=== PATIENT | male | born 1960 | race Hispanic/Latino ===

== ENCOUNTER 2020-06-19 15:08 | Outpatient (AMBR) | payer MEDICAID, SELFPAY ==
--- NOTE | 2020-06-04 15:07 | PT.OIERPT ---
PT OP Initial Eval Patient Information Visit Reasons: Cerebrovascular accident Medical Diagnosis: acute CVA Treatment Dx #1: CVA with R sided hemiparesis Start of Care: 06/04/20 Date of Onset: 05/28/20 Initial Assessment Subjective Pt is 60 yr old greek speaking male here with his sister s/p CVA about 1 week ago. Pt was admitted to [facility] and then discharged to live with his brother and sister in law. Pt has difficulty walking with FWW and speaking is slurred. He is ambulating with 4WW. PLOF: community mobility without assistive device. PMH: DM, HTN, CVA with R hemiplegia Imaging: in EMR Pt goal: to walk better Objective R Babinski: positive R quads: 3-/5 R HS: 3-/5 R LE tone + R ankle DF PROM: to neutral due to tone and tightness R shoulder PROM: FF: 40 Abd: 60 deg ERot: 20 deg R expanded function dental assistant: unable to expanded function dental assistant fully with pressure Transfers: CGA/Maranda from stand<>sit Tinetti: 01/28 Assessment Pt presentation consistent with CVA and R hemiplegia and increased extensor tone of R LE with mild spasticity and decreased R ankle DF. Pt ambulates with FWW and hemiplegic gait with drop foot on R. For this reason, pt would benefit from an AFO to bring ankle into neutral. R shoulder is limited by tone and myofascial tension. He is a high fall risk on Tinetti balance test and requires assist for safety. Pt requires skilled therapy to improve gait and transfers and has fair rehab potential. Short Term and Mcfp Goals 1. Independent with HEP 2. Pt will transfer from supine to sit using logrolling technique with supervision 3. Improved Tinetti score to at least 13/28 4. Ambulate without catching R toe during swing phase for 30' and FWW Treatment Plan 1. Manual therapy 2. Therex 3. Modalities as indicated, moist heat, ice, estim 4. Therapeutic activities 5. Gait training Frequency and Duration 2x a week for 8 weeks Certification Dates: 06/04/20 to 08/31/20 Office Procedures PT Procedures PT Date of Service: 06/04/20 OP PT Eval Mod Complex 30 minutes: Yes CVA/TIA Most Recent Cardiac Tests: Chest X-Ray 05/28/20
--- NOTE | 2020-06-05 19:40 | PT.ODAYNRPT ---
PT Outpatient Daily Note Date of Service: 06/05/20 OP Daily Note Visit Reasons: Cerebrovascular accident Outpatient Physical Therapy Treatment Date: 06/05/20 Subjective: Same as time of evaluation Objective: See F/S for therex Assessment: Pt is able to ambulate with min/modAx1 and has difficulty lifting R foot with gait. Plan: Continue per POC Length of Time (minutes) of Treatment: 30 Minutes Office Procedures PT Procedures PT Date of Service: 06/05/20 Therapeutic Exercise 30 minutes: Yes PT Procedures PT Date of Service: 06/04/20 OP PT Eval Mod Complex 30 minutes: Yes CVA/TIA Most Recent Cardiac Tests: Chest X-Ray 05/28/20
--- NOTE | 2020-06-11 17:48 | PT.ODAYNRPT ---
PT Outpatient Daily Note Date of Service: 06/11/20 OP Daily Note Visit Reasons: Cerebrovascular accident Outpatient Physical Therapy Treatment Date: 06/11/20 Subjective: Pt c/o pain and points to L hamstring proximally Objective: See F/S for therex Assessment: Pt is able to ambulate with min/modAx1 and has difficulty lifting R foot with gait. L LE pain limited strength on bike and with bridges today. Plan: Continue per POC Length of Time (minutes) of Treatment: 30 Minutes Office Procedures PT Procedures PT Date of Service: 06/05/20 MCL Initial 30 minutes: Yes PT Procedures PT Date of Service: 06/04/20 OP PT Eval Mod Complex 30 minutes: Yes PT Procedures PT Date of Service: 06/11/20 MCL Initial 30 minutes: Yes CVA/TIA Most Recent Cardiac Tests: Chest X-Ray 05/28/20
--- NOTE | 2020-06-13 19:02 | PT.ODAYNRPT ---
PT Outpatient Daily Note Date of Service: 06/13/20 OP Daily Note Visit Reasons: Cerebrovascular accident Outpatient Physical Therapy Treatment Date: 06/13/20 Subjective: No complaints today. Objective: See F/S for therex Assessment: Pt is able to ambulate with minAx1 and normally has difficulty lifting R foot with gait but he didn't catch the foot today and no LOB with turning around in parallel bars with CGA assist and gait belt for safety. Plan: Continue per POC Length of Time (minutes) of Treatment: 30 Minutes Office Procedures PT Procedures PT Date of Service: 06/05/20 MCL Initial 30 minutes: Yes PT Procedures PT Date of Service: 06/13/20 MCL Initial 30 minutes: Yes PT Procedures PT Date of Service: 06/04/20 OP PT Eval Mod Complex 30 minutes: Yes PT Procedures PT Date of Service: 06/11/20 MCL Initial 30 minutes: Yes CVA/TIA Most Recent Cardiac Tests: Chest X-Ray 05/28/20
--- NOTE | 2020-06-19 19:03 | PT.ODAYNRPT ---
PT Outpatient Daily Note Date of Service: 06/19/20 OP Daily Note Visit Reasons: Cerebrovascular accident Outpatient Physical Therapy Treatment Date: 06/19/20 Subjective: Pt says it's difficult to roll onto his side laying down. Objective: See F/S for therex Assessment: Pt is able to ambulate with supervision and FWW which is an improvement in less assist. He has difficulty lifting R foot with gait and tends to not clear the floor during swing phase. Difficulty lifting R LE with rolling in supine. Plan: Continue per POC Length of Time (minutes) of Treatment: 30 Minutes Office Procedures PT Procedures PT Date of Service: 06/05/20 MCL Initial 30 minutes: Yes PT Procedures PT Date of Service: 06/13/20 MCL Initial 30 minutes: Yes PT Procedures PT Date of Service: 06/19/20 MCL Initial 30 minutes: Yes PT Procedures PT Date of Service: 06/04/20 OP PT Eval Mod Complex 30 minutes: Yes PT Procedures PT Date of Service: 06/11/20 MCL Initial 30 minutes: Yes CVA/TIA Most Recent Cardiac Tests: Chest X-Ray 05/28/20
== END 2020-06-30 23:59 | disposition home or self-care (01) ==
PROVIDERS: PCP Internal Medicine; Referring Provider Internal Medicine; Visit Provider Internal Medicine
DX: R26.2 Difficulty in walking, not elsewhere classified (principal); R47.81 Slurred speech; E11.9 Type 2 diabetes mellitus without complications; I10 Essential (primary) hypertension
CPT/HCPCS: 97162

== ENCOUNTER 2020-07-11 13:05 | Outpatient (AMBR) | payer MEDICAID, SELFPAY ==
--- NOTE | 2020-07-01 16:47 | PTNOTE_ITS ---
PT Outpatient Daily Note Date of Service: 07/01/20 OP Daily Note Visit Reasons: Cerebrovascular accident Outpatient Physical Therapy Treatment Date: 07/01/20 Subjective: Same as last time, poor hostorian Objective: See F/S for therex Assessment: Pt ambulates with FWW and slightly discontinuous steps. Without FWW he requires Maranda for balance on R side because he has difficulty clearing R foot during swing phase. Plan: Improve balance with gait Length of Time (minutes) of Treatment: 30 Minutes Office Procedures PT Procedures PT Date of Service: 07/01/20 [facility] Initial 30 minutes: Yes CVA/TIA Most Recent Cardiac Tests: Chest X-Ray 05/28/20
--- NOTE | 2020-07-04 18:54 | PT.ODAYNRPT ---
PT Outpatient Daily Note Date of Service: 07/04/20 OP Daily Note Visit Reasons: Cerebrovascular accident Outpatient Physical Therapy Treatment Date: 07/04/20 Subjective: Same as last time, poor hostorian Objective: See F/S for therex Assessment: Pt ambulates with FWW and slightly discontinuous steps. Without FWW he requires Maranda for balance on R side because he has difficulty clearing R foot during swing phase. Plan: Improve balance with gait Length of Time (minutes) of Treatment: 30 Minutes Office Procedures PT Procedures PT Date of Service: 07/01/20 MCL Initial 30 minutes: Yes PT Procedures PT Date of Service: 07/04/20 MCL Initial 30 minutes: Yes CVA/TIA Most Recent Cardiac Tests: Chest X-Ray 05/28/20
--- NOTE | 2020-07-11 13:38 | PT.ODAYNRPT ---
PT Outpatient Daily Note Date of Service: 07/11/20 OP Daily Note Visit Reasons: Cerebrovascular accident Outpatient Physical Therapy Treatment Date: 07/11/20 Subjective: Pt is walking without walker or assistive device and dtr says he decided one day to do that. Pt feels his balance has improved. Objective: See F/S for therex Assessment: Pt ambulates without FWW and slightly discontinuous steps step through pattern. He didn't have LOB today or catch his foot during the session but he has difficulty lifting the R LE over cones. Plan: Improve balance with gait Length of Time (minutes) of Treatment: 30 Minutes Office Procedures PT Procedures PT Date of Service: 07/01/20 MCL Initial 30 minutes: Yes PT Procedures PT Date of Service: 07/04/20 MCL Initial 30 minutes: Yes PT Procedures PT Date of Service: 07/11/20 MCL Initial 30 minutes: Yes CVA/TIA Most Recent Cardiac Tests: Chest X-Ray 05/28/20
--- NOTE | 2020-08-05 19:17 | PT.ODS1RPT ---
PT OP Progress/Discharge Note Date of Service: 08/05/20 Progress Note/DC Note Progress Note/Discharge Note: DC Note Patient Information Visit Reasons: Cerebrovascular accident Service Continue Service or Discharge: Discharge Discharge Date: 08/05/20 Status Assessment: Pt attended the initial evaluation and 11/11 Rx visits and then no showed 3 times in a row. He never returned or called to schedule a follow-up apt. Pt?s attendance is not consistent enough to make progress with goals. Pt will be D/C'd according to non-compliance with attendance policy. Plan: D/C Office Procedures PT Procedures PT Date of Service: 07/01/20 MCL Initial 30 minutes: Yes PT Procedures PT Date of Service: 07/04/20 MCL Initial 30 minutes: Yes PT Procedures PT Date of Service: 07/11/20 MCL Initial 30 minutes: Yes CVA/TIA Most Recent Cardiac Tests: Chest X-Ray 05/28/20
== END 2020-07-31 23:59 | disposition home or self-care (01) ==
PROVIDERS: PCP Internal Medicine; Referring Provider Internal Medicine; Visit Provider Internal Medicine
DX: R26.2 Difficulty in walking, not elsewhere classified (principal); R47.81 Slurred speech; E11.9 Type 2 diabetes mellitus without complications; I10 Essential (primary) hypertension